=== PATIENT | female | born 2000 | race Caucasian/White ===

== ENCOUNTER 2019-11-15 12:47 | Observation (INO) | payer BC, OTHER ==
[2019-11-15] MEDS ORDERED: ONDANSETRON 4 MG/2 ML VIAL IVP STA (13:17)
[2019-11-15] MEDS ORDERED: SODIUM CHLORIDE 0.9% 1,000 ML IV STA (13:17)
[2019-11-15] MEDS ORDERED: MORPHINE SULFATE 4 MG/ML SYRINGE IV STA (13:17)
--- NOTE | 2019-11-15 13:33 | ED ---
Abdominal Pain HPI - General Chief Complaint: Abdominal Pain Stated Complaint: Stomach pain Time Seen by Provider: 11/15/19 13:04 Source: patient Mode of arrival: ambulatory Limitations: no limitations - History of Present Illness Initial Comments: Patient is a 19-year-old female presenting to the emergency Department with complaints of lower abdominal pain that started suddenly this morning. Patient states the pain woke her up from sleep approximately 9 AM. Patient states the pain is located suprapubic and is sharp in nature. She rates the pain 9/10. Patient denies being at this time states she is on control. She does not normally have a period. Patient states she does have a history of kidney stones. Patient states she has been having frequent urination throughout the day as well as mild hematuria. Patient denies history of abdominal surgeries. She has been having regular bowel movements. Patient states she does have an appointment with a GI specialist as she's been having "stomach issues." She denies fever, chills, chest pain, shortness of breath. She has no other complaints at this time. Upon arrival to the ER, vital signs are stable. - Related Data Allergies Allergy/AdvReac Type Severity Reaction Status Date / Time amoxicillin [From Augmentin] Allergy Unknown Verified 11/15/19 12:54 clavulanic acid Allergy Unknown Verified 11/15/19 12:54 [From Augmentin] ketorolac [From Toradol] Allergy Rash/Hives Verified 11/15/19 12:54 Review of Systems ROS Statement: Those systems with pertinent positive or pertinent negative responses have been documented in the HPI. ROS Other: All systems not noted in ROS Statement are negative. Past Medical History Past Medical History: No Reported History History of Any Multi-Drug Resistant Organisms: None Reported Additional Past Surgical History / Comment(s): breast reduction 2017 Past Psychological History: Anxiety, Depression Smoking Status: Never smoker Past Alcohol Use History: None Reported Past Drug Use History: None Reported General Exam - General Exam Comments Initial Comments: GENERAL: Well-appearing, well-nourished and in no acute distress. HEAD: Atraumatic, normocephalic. EYES: Pupils equal round and reactive to light, extraocular movements intact, sclera anicteric, conjunctiva are normal. ENT: TMs normal, nares patent, oropharynx clear without exudates. Moist mucous membranes. NECK: Normal range of motion, supple without lymphadenopathy or JVD. LUNGS: Breath sounds clear to auscultation bilaterally and equal. No wheezes rales or rhonchi. HEART: Regular rate and rhythm without murmurs, rubs or gallops. ABDOMEN: Tender to palpation suprapubic and right lower quadrant. Soft, normoactive bowel sounds. No guarding, no rebound. No masses appreciated. : Deferred EXTREMITIES: Normal range of motion, no pitting or edema. No clubbing or cyanosis. NEUROLOGICAL: Cranial nerves II through XII grossly intact. Normal speech, normal gait. PSYCH: Normal mood, normal affect. SKIN: Warm, Dry, normal turgor, no rashes or lesions noted. Limitations: no limitations Course Vital Signs 11/15/19 12:49 Temperature 98.7 F Pulse Rate 78 Respiratory 16 Rate Blood Pressure 106/72 O2 Sat by Pulse 96 Oximetry Medical Decision Making - Medical Decision Making Patient is a 19-year-old female presenting with right lower quadrant suprapubic tenderness that woke her up this morning. No history of prior abdominal surgeries. Does have a history of kidney stones. Patient is tender right lower quadrant as well as suprapubic area. Lab work shows slight leukocytosis of 11.0, no other acute findings. Urine does show significant amount of blood and RBCs. Not . Patient's pain seemed abnormal for kidney stone so CT of the abdomen was ordered with IV contrast. This shows possible small bowel obstruction or stricture. There also appears to be a small ureter stone on the right side. We did consult with Dr. Torres who recommended admission as well as [address] with oral contrast. Patient will be nothing by mouth. We will continue with IV fluids, pain control. Patient is agreement with this plan and care. Case discussed with Dr. King. - Lab Data Result diagrams: 11/15/19 13:45 11/15/19 13:45 Lab Results 11/15/19 11/15/19 11/15/19 Range/Units 12:57 12:57 13:45 WBC 11.0 H (3.8-10.6) k/uL RBC 4.62 (3.80-5.40) m/uL Hgb 13.7 (11.4-16.0) gm/dL Hct 42.7 (34.0-46.0) % MCV 92.4 (80.0-100.0) fL MCH 29.7 (25.0-35.0) pg MCHC 32.2 (31.0-37.0) g/dL RDW 12.4 (11.5-15.5) % Plt Count 381 (150-450) k/uL Neutrophils % 86 % Lymphocytes % 10 % Monocytes % 2 % Eosinophils % 1 % Basophils % 0 % Neutrophils # 9.4 H (1.3-7.7) k/uL Lymphocytes # 1.1 (1.0-4.8) k/uL Monocytes # 0.2 (0-1.0) k/uL Eosinophils # 0.1 (0-0.7) k/uL Basophils # 0.1 (0-0.2) k/uL Sodium (137-145) mmol/L Potassium (3.5-5.1) mmol/L Chloride (98-107) mmol/L Carbon Dioxide (22-30) mmol/L Anion Gap mmol/L BUN (7-17) mg/dL Creatinine (0.52-1.04) mg/dL Est GFR (CKD-EPI)AfAm (>60 ml/min/1.73 sqM) Est GFR (CKD-EPI)NonAf (>60 ml/min/1.73 sqM) Glucose (74-99) mg/dL Plasma Lactic Acid Olaf (0.7-2.0) mmol/L Calcium (8.4-10.2) mg/dL Total Bilirubin (0.2-1.3) mg/dL AST (14-36) U/L ALT (4-34) U/L Alkaline Phosphatase (38-126) U/L Total Protein (6.3-8.2) g/dL Albumin (3.5-5.0) g/dL Lipase (23-300) U/L Urine Color Red Urine Appearance Cloudy H (Clear) Urine pH 7.5 (5.0-8.0) Ur Specific Mcdermitt 1.022 (1.001-1.035) Urine Protein 1+ H (Negative) Urine Glucose (UA) Negative (Negative) Urine Ketones Trace H (Negative) Urine Blood Large H (Negative) Urine Nitrite Negative (Negative) Urine Bilirubin Negative (Negative) Urine Urobilinogen <2.0 (<2.0) mg/dL Ur Leukocyte Esterase Small H (Negative) Urine RBC >182 H (0-5) /hpf Urine WBC 11 H (0-5) /hpf Ur Squamous Epith Cells 11 H (0-4) /hpf Urine Bacteria Occasional H (None) /hpf Urine Mucus Few H (None) /hpf Urine HCG, Qual Not Detected (Not Detectd) 11/15/19 11/15/19 Range/Units 13:45 13:45 WBC (3.8-10.6) k/uL RBC (3.80-5.40) m/uL Hgb (11.4-16.0) gm/dL Hct (34.0-46.0) % MCV (80.0-100.0) fL MCH (25.0-35.0) pg MCHC (31.0-37.0) g/dL RDW (11.5-15.5) % Plt Count (150-450) k/uL Neutrophils % % Lymphocytes % % Monocytes % % Eosinophils % % Basophils % % Neutrophils # (1.3-7.7) k/uL Lymphocytes # (1.0-4.8) k/uL Monocytes # (0-1.0) k/uL Eosinophils # (0-0.7) k/uL Basophils # (0-0.2) k/uL Sodium 136 L (137-145) mmol/L Potassium 4.8 (3.5-5.1) mmol/L Chloride 103 (98-107) mmol/L Carbon Dioxide 20 L (22-30) mmol/L Anion Gap 13 mmol/L BUN 10 (7-17) mg/dL Creatinine 0.57 (0.52-1.04) mg/dL Est GFR (CKD-EPI)AfAm >90 (>60 ml/min/1.73 sqM) Est GFR (CKD-EPI)NonAf >90 (>60 ml/min/1.73 sqM) Glucose 96 (74-99) mg/dL Plasma Lactic Acid Olaf 1.9 (0.7-2.0) mmol/L Calcium 10.0 (8.4-10.2) mg/dL Total Bilirubin 0.2 (0.2-1.3) mg/dL AST 19 (14-36) U/L ALT 16 (4-34) U/L Alkaline Phosphatase 116 (38-126) U/L Total Protein 7.9 (6.3-8.2) g/dL Albumin 4.5 (3.5-5.0) g/dL Lipase 27 (23-300) U/L Urine Color Urine Appearance (Clear) Urine pH (5.0-8.0) Ur Specific Mcdermitt (1.001-1.035) Urine Protein (Negative) Urine Glucose (UA) (Negative) Urine Ketones (Negative) Urine Blood (Negative) Urine Nitrite (Negative) Urine Bilirubin (Negative) Urine Urobilinogen (<2.0) mg/dL Ur Leukocyte Esterase (Negative) Urine RBC (0-5) /hpf Urine WBC (0-5) /hpf Ur Squamous Epith Cells (0-4) /hpf Urine Bacteria (None) /hpf Urine Mucus (None) /hpf Urine HCG, Qual (Not Detectd) Disposition Clinical Impression: Lower abdominal pain, Hematuria, Right ureteral stone, Small bowel obstruction Disposition: ADMITTED IP TO THIS [facility] Condition: Stable Is patient prescribed a controlled substance at d/c from ED?: No Referrals: Georgie Mireles DO [Primary Care Provider] - 1-2 days Decision Date: 11/15/19 Decision Time: 16:00
[2019-11-15 13:36] LABS: Appearance,Urine Cloudy (Clear); Bacteria,Urine Occasional /hpf; Bilirubin,Urine Negative (Negative); Blood,Urine Large (Negative); Color,Urine Red; Glucose,Urine (UA) Negative (Negative); Ketones,Urine Trace (Negative); Leukocyte Esterase,Urine Small (Negative); Mucus,Urine Few /hpf; Nitrite,Urine Negative (Negative); PH, Urine 7.5 (5.0-8.0); Protein,Urine 1+ (Negative); RBC,Urine >182 /hpf (0-5); Specific Gravity,Urine 1.022 (1.001-1.035); Squamous Epithelial Cell,Urine 11 /hpf (0-4); Urobilinogen,Urine <2.0 mg/dL (<2.0); WBC,Urine 11 /hpf (0-5)
[2019-11-15 14:17] LABS: Basophils # (A) 0.1 k/uL (0-0.2); Basophils % (A) 0 %; Eosinophils # (A) 0.1 k/uL (0-0.7); Eosinophils % (A) 1 %; HCT 42.7 % (34.0-46.0); HGB 13.7 gm/dL (11.4-16.0); Lymphocytes # (A) 1.1 k/uL (1.0-4.8); Lymphocytes % (A) 10 %; MCH 29.7 pg (25.0-35.0); MCHC 32.2 g/dL (31.0-37.0); MCV 92.4 fL (80.0-100.0); Mean Platelet Volume 6.8; Monocytes # (A) 0.2 k/uL (0-1.0); Monocytes % (A) 2 %; Neutrophils # (A) 9.4 k/uL (1.3-7.7); Neutrophils % (A) 86 %; Platelet Count 381 k/uL (150-450); RBC 4.62 m/uL (3.80-5.40); RDW 12.4 % (11.5-15.5)
[2019-11-15 14:32] LABS: ALT 16 U/L (4-34); AST 19 U/L (14-36); African American GFR (CKD) >90 (>60 ml/min/1.73 sqM); Albumin 4.5 g/dL (3.5-5.0); Alkaline Phosphatase 116 U/L (38-126); Anion Gap 13 mmol/L; Blood Urea Nitrogen 10 mg/dL (7-17); Carbon Dioxide 20 mmol/L (22-30); Chloride 103 mmol/L (98-107); Glucose 96 mg/dL (74-99); Non-African American GFR(CKD) >90 (>60 ml/min/1.73 sqM); Potassium 4.8 mmol/L (3.5-5.1); Sodium 136 mmol/L (137-145); Total Bilirubin 0.2 mg/dL (0.2-1.3); Total Protein 7.9 g/dL (6.3-8.2)
--- NOTE | 2019-11-15 15:44 | CT ---
EXAMINATION TYPE: CT abdomen pelvis w con DATE OF EXAM: 11/15/2019 COMPARISON: HISTORY: RLQ pain CT DLP: 1123.2 mGycm Automated exposure control for dose reduction was used. TECHNIQUE: Helical acquisition of images from the lung bases through the pelvis have been completed. CONTRAST: Performed without Oral Contrast and with IV Contrast, patient injected with 100 mL of Isovue 300. FINDINGS: At the right cardiophrenic angle there is a low dense focus present measuring approximate 5 .1 x 3.1 x 3.5 cm likely representing pericardial cyst. There is no pleural pericardial effusion. Thi s small hiatal hernia. LUNG BASES: No significant abnormality is appreciated. AORTA: No significant abnormality is appreciated. LIVER/GB: Liver is enlarged. Gallbladder unremarkable. PANCREAS: No significant abnormality is seen. SPLEEN: Low dense focus measuring 13 mm towards the hilum likely representing cyst. ADRENALS: No significant abnormality is seen. KIDNEYS: No significant abnormality is seen. REPRODUCTIVE ORGANS: No significant abnormality is seen BOWEL: Small bowel feces sign suggestive of the terminal ileum. Terminal ileum is somewhat dilated, transition point suspected on coronal image #38, axial image #47. The appendix is normal. Fecal mater ial present within a distended cecum. Diverticular change present along the colon, there is colonic w all thickening also present. FREE AIR: No Free Air visible. ASCITES: None visible. PELVIC ADENOPATHY: None visualized. RETROPERITONEAL ADENOPATHY: No Retroperitoneal Adenopathy visible. URINARY BLADDER: No significant abnormality is seen. OSSEOUS STRUCTURES: No significant abnormality is seen. IMPRESSION: SMALL BOWEL FECES SIGN WITH SUGGESTION OF TRANSITION POINT, CALIBER CHANGE DESCRIBED, CORRELATE FO R POSSIBLE OBSTRUCTION OR STRICTURE, THERE MAY BE UNDERLYING COLITIS, THERE IS DIVERTICULOSIS, SMALL BOWEL FOLLOW-THROUGH ARE FOLLOW-UP CT WITH ORAL CONTRAST WITH APPROPRIATE PREP TO ALLOW FOR CONTRAST MATERIAL THROUGH THE SMALL BOWEL INTO THE COLON TO BE OF BENEFIT. CONSIDER SURGICAL CONSULT.
[2019-11-15] MEDS ORDERED: ACETAMINOPHEN TAB 325 MG TAB PO PRN (16:01)
[2019-11-15] MEDS ORDERED: NALOXONE 0.4 MG/ML 1 ML VIAL IV PRN (16:01)
[2019-11-15] MEDS ORDERED: traMADol 50 MG TAB PO PRN (16:01)
[2019-11-15] MEDS ORDERED: IOPAMIDOL CONTRAST (ORAL USE) VIAL PO PRN (16:02)
[2019-11-15] MEDS ORDERED: MORPHINE SULFATE 4 MG/ML SYRINGE IVP STA (16:16)
[2019-11-15] MEDS: SODIUM CHLORIDE 0.9% 1,000 ML IV SCH (16:36)
--- NOTE | 2019-11-15 18:56 | CT ---
EXAMINATION TYPE: CT abdomen pelvis wo con DATE OF EXAM: 11/15/2019 COMPARISON: 11/15/2019, earlier today HISTORY: 19-year-old female right lower quadrant pain, possible small bowel obstruction CT DLP: 728.9 mGycm. Automated exposure control for dose reduction was used. TECHNIQUE: Contiguous axial scanning of the abdomen and pelvis without IV contrast. Oral contrast was administered. Coronal and sagittal reconstructions performed. FINDINGS: Heart normal size without pericardial effusion. Redemonstrated is partially visualized 4.9 x 3.2 cm r ight-sided pericardiac cyst. Lung bases clear without pleural effusion. Liver mildly enlarged at 19.5 cm. Otherwise, noncontrast appearance of the liver, gallbladder, adrena l glands, left kidney, spleen, and pancreas show no gross abnormality. There is a tiny 3 mm calculus in the upper third right ureter but no significant hydronephrosis appar ent. In retrospect, this was present on the exam earlier today. Interval passage of the mottled debris within the distal ileum. Oral contrast has progressed into the cecum. Normal appendix. Moderate stool within the right side of the colon. No dilated small bowel, f ree fluid, free air. A couple prominent mid mesenteric lymph nodes measuring up to 6 mm. IV contrast collecting within the bladder. Uterus is anteverted. Both ovaries are visualized. No abno rmal fluid collection in the pelvis or pelvic lymphadenopathy. Bones: Left L5 hemisacralization with a mildly degenerative some limitation joint. IMPRESSION: 1. Improvement in appearance of the small bowel and ileum is compared to the exam of earlier today. Oral contrast has also passed into the right side of the colon. No evidence for small bowel obstructi on. 2. However, we now identify a tiny 3 mm calculus in the upper third right ureter. This does not cont ribute to any significant obstructive uropathy.
[2019-11-15] MEDS: MORPHINE SULFATE 4 MG/ML SYRINGE IV PRN (20:33)
[2019-11-16] MEDS: MORPHINE SULFATE 4 MG/ML SYRINGE IV PRN ×3 (00:26→13:27)
[2019-11-16] MEDS: ONDANSETRON 4 MG/2 ML VIAL IVP PRN (07:20)
[2019-11-16] MEDS: SODIUM CHLORIDE 0.9% 1,000 ML IV SCH (08:17)
--- NOTE | 2019-11-16 11:07 | P.GSHP ---
<Ghislaine Oliveira - Last Filed: 11/16/19 11:07> History of Present Illness H&P Date: 11/16/19 Chief Complaint: abdominal pain CHIEF COMPLAINT: Abdominal pain HISTORY OF PRESENT ILLNESS: 19-year-old female who presented to the emergency room with a chief complaint of abdominal pain. Patient examined this morning at the bedside. She reports lower abdominal pain but states it is tolerable at this time. She reports she has been having abdominal pain for the past 2-3 months. She recently was evaluated outpatient by a utility supervisor [employer] and [employer] but she is unsure of who she saw. She states they told her she likely has IBS. Patient reports mild nausea but denies vomiting. Denies fever or chills. Denies change in bowel habits. PAST MEDICAL HISTORY: See list. PAST SURGICAL HISTORY: See list. SOCIAL HISTORY: No illicit drug use. REVIEW OF SYSTEMS: CONSTITUTIONAL: Denies fever or chills. HEENT: Denies blurred vision, vision changes, or eye pain. Denies hemoptysis CARDIOVASCULAR: Denies chest pain or pressure. RESPIRATORY: No shortness of breath. GASTROINTESTINAL: Refer to HPI for pertinent findings HEMATOLOGIC: Denies bleeding disorders. GENITOURINARY: Denies any blood in urine. SKIN: Denies pruitis. Denies rash. PHYSICAL EXAM: VITAL SIGNS: Reviewed. GENERAL: Well-developed in no acute distress. HEENT: No sclera icterus. Extraocular movements grossly intact. Moist buccal mucosa. Head is atraumatic, normocephalic. ABDOMEN: Soft. Nondistended. Minimal tenderness on palpation of lower abdomen. NEUROLOGIC: Alert and oriented. Cranial nerves II through XII grossly intact. LABORATORY DATA: WBC 11.0. Hemoglobin 13.7. Platelet count 381. IMAGING: CT abdomen and pelvis: Improvement in appearance of the small bowel and ileum compared to exam of earlier today. Oral contrast this passed into the right side of the colon. No evidence for small bowel obstruction Tiny 3 mm calculus in the upper third right ureter. This does not contribute to any significant obstructive uropathy. ASSESSMENT: 1. Abdominal pain 2. Small bowel obstruction, ruled out PLAN: Continue NPO status until patient is evaluated by Dr. Torres this afternoon. Anticipate initiation of diet that time Patient encouraged to follow-up with her utility supervisor [employer] post discharge. Further recommendations pending evaluation by Dr. Torres today. Nurse practitioner note has been reviewed by physician. Signing provider agrees with the documented findings, assessment, and plan of care. Past Medical History Past Medical History: No Reported History History of Any Multi-Drug Resistant Organisms: None Reported Additional Past Surgical History / Comment(s): breast reduction 2017 Past Psychological History: Anxiety, Depression Smoking Status: Never smoker Past Alcohol Use History: None Reported Past Drug Use History: None Reported - Past Family History Mother Family Medical History: CVA/TIA Additional Family Medical History / Comment(s): CVA at 27, depression, borderline personality disorder Medications and Allergies Home Medications Medication Instructions Recorded Confirmed Type Atomoxetine HCl 80 mg PO QAM 11/15/19 11/15/19 History Dextroamphetamine/Amphetamine 15 mg PO QAM 11/15/19 11/15/19 History [Adderall Xr] Norethindrone-E.estradiol-Iron 1 tab PO DAILY 11/15/19 11/15/19 History [Junel Fe 1.5 mg-30 Mcg Tablet] OLANZapine [ZyPREXA] 5 mg PO HS 11/15/19 11/15/19 History Venlafaxine HCl ER [Effexor Xr] 150 mg PO DAILY 11/15/19 11/15/19 History Allergies Allergy/AdvReac Type Severity Reaction Status Date / Time clavulanic acid Allergy Mild Unknown Verified 11/15/19 20:58 [From Augmentin] amoxicillin [From Augmentin] Allergy Unknown Verified 11/15/19 20:58 ketorolac [From Toradol] Allergy Rash/Hives Verified 11/15/19 20:58 walnut Allergy Unknown Verified 11/15/19 20:58 Surgical - Exam Vital Signs Temp Pulse Resp BP Pulse Ox 98.7 F 78 16 106/72 96 11/15/19 12:49 11/15/19 12:49 11/15/19 12:49 11/15/19 12:49 11/15/19 12:49 Results - Labs 11/15/19 13:45 11/15/19 13:45 Abnormal Lab Results - Last 24 Hours (Table) 11/15/19 11/15/19 11/15/19 Range/Units 12:57 13:45 13:45 WBC 11.0 H (3.8-10.6) k/uL Neutrophils # 9.4 H (1.3-7.7) k/uL Sodium 136 L (137-145) mmol/L Carbon Dioxide 20 L (22-30) mmol/L Urine Appearance Cloudy H (Clear) Urine Protein 1+ H (Negative) Urine Ketones Trace H (Negative) Urine Blood Large H (Negative) Ur Leukocyte Esterase Small H (Negative) Urine RBC >182 H (0-5) /hpf Urine WBC 11 H (0-5) /hpf Ur Squamous Epith Cells 11 H (0-4) /hpf Urine Bacteria Occasional H (None) /hpf Urine Mucus Few H (None) /hpf Microbiology - Last 24 Hours (Table) 11/15/19 12:57 Urine Culture - Preliminary Urine,Voided Diabetes panel 11/15/19 Range/Units 13:45 Sodium 136 L (137-145) mmol/L Potassium 4.8 (3.5-5.1) mmol/L Chloride 103 (98-107) mmol/L Carbon Dioxide 20 L (22-30) mmol/L BUN 10 (7-17) mg/dL Creatinine 0.57 (0.52-1.04) mg/dL Glucose 96 (74-99) mg/dL Calcium 10.0 (8.4-10.2) mg/dL AST 19 (14-36) U/L ALT 16 (4-34) U/L Alkaline Phosphatase 116 (38-126) U/L Total Protein 7.9 (6.3-8.2) g/dL Albumin 4.5 (3.5-5.0) g/dL Calcium panel 11/15/19 Range/Units 13:45 Calcium 10.0 (8.4-10.2) mg/dL Albumin 4.5 (3.5-5.0) g/dL Pituitary panel 11/15/19 Range/Units 13:45 Sodium 136 L (137-145) mmol/L Potassium 4.8 (3.5-5.1) mmol/L Chloride 103 (98-107) mmol/L Carbon Dioxide 20 L (22-30) mmol/L BUN 10 (7-17) mg/dL Creatinine 0.57 (0.52-1.04) mg/dL Glucose 96 (74-99) mg/dL Calcium 10.0 (8.4-10.2) mg/dL Adrenal panel 11/15/19 Range/Units 13:45 Sodium 136 L (137-145) mmol/L Potassium 4.8 (3.5-5.1) mmol/L Chloride 103 (98-107) mmol/L Carbon Dioxide 20 L (22-30) mmol/L BUN 10 (7-17) mg/dL Creatinine 0.57 (0.52-1.04) mg/dL Glucose 96 (74-99) mg/dL Calcium 10.0 (8.4-10.2) mg/dL Total Bilirubin 0.2 (0.2-1.3) mg/dL AST 19 (14-36) U/L ALT 16 (4-34) U/L Alkaline Phosphatase 116 (38-126) U/L Total Protein 7.9 (6.3-8.2) g/dL Albumin 4.5 (3.5-5.0) g/dL <Davy Torres - Last Filed: 11/16/19 16:40> Surgical - Exam Vital Signs Temp Pulse Resp BP Pulse Ox 98.7 F 78 16 106/72 96 11/15/19 12:49 11/15/19 12:49 11/15/19 12:49 11/15/19 12:49 11/15/19 12:49 Results - Labs 11/15/19 13:45 11/15/19 13:45 Microbiology - Last 24 Hours (Table) 11/15/19 12:57 Urine Culture - Preliminary Urine,Voided Assessment and Plan Assessment: Patient feels better this afternoon. Her abdomen soft. She is tolerating clears. Patient will be observed overnight. She'll have her diet advanced the morning.
[2019-11-16] MEDS ORDERED: PANTOPRAZOLE 40 MG/10 ML VIAL IVP SCH (21:00)
[2019-11-16] MEDS ORDERED: NORETHINDRONE E ESTRADIOL IRON PO SCH (21:45)
[2019-11-16] MEDS ORDERED: ATOMOXETINE HCL 80 MG PO SCH (21:45)
[2019-11-16] MEDS ORDERED: DEXTROAMPHETAMINE PO SCH (21:45)
[2019-11-16] MEDS ORDERED: AMPHETAMINE PO SCH (21:45)
[2019-11-16] MEDS ORDERED: OLANZapine 5 MG TAB PO SCH (22:00)
[2019-11-16] MEDS: VENLAFAXINE HCL ER 150 MG CAP PO SCH (22:51)
[2019-11-17] MEDS: ONDANSETRON 4 MG/2 ML VIAL IVP PRN (00:48)
[2019-11-17] MEDS: MORPHINE SULFATE 4 MG/ML SYRINGE IV PRN (01:19)
[2019-11-17] MEDS: VENLAFAXINE HCL ER 150 MG CAP PO SCH (11:06)
[2019-11-17] MEDS: SODIUM CHLORIDE 0.9% 1,000 ML IV SCH ×2 (11:10→11:45)
[2019-11-17] MEDS ORDERED: JUNEL FE PO SCH (12:00)
[2019-11-17] MEDS ORDERED: STRATTERA 80 MG PO SCH (12:00)
[2019-11-17] MEDS ORDERED: ADDERALL 15 MG PO SCH (12:00)
--- NOTE | 2019-11-17 12:42 | P.DS ---
Providers Date of admission: 11/15/19 15:57 Expected date of discharge: 11/17/19 Attending physician: Davy Torres Primary care physician: Georgie Mireles DO Hospital Course: 19-year-old female who presented to the emergency room with a chief complaint of abdominal pain. She reports she has been having abdominal pain for the past 2-3 months. She recently was evaluated outpatient by a litigation examiner but she is unsure of who she saw. She states they told her she likely has IBS. WBC 11.0. Hemoglobin 13.7. Platelet count 381. CT abdomen and pelvis: Improvement in appearance of the small bowel and ileum compared to exam of earlier today. Oral contrast this passed into the right side of the colon. No evidence for small bowel obstruction Tiny 3 mm calculus in the upper third right ureter. This does not contribute to any significant obstructive uropathy. Patient was started on a clear liquid diet and advance as tolerated. She states her pain has significantly improved and feels she is ready to be discharged home. Dr. Torres is agreeable to discharge today. She is to follow up outpatient. Please see EMR for further hospital course details. Discharge Diagnosis: 1. Abdominal pain 2. Small bowel obstruction, ruled out Nurse practitioner note has been reviewed by physician. Signing provider agrees with the documented findings, assessment, and plan of care. Patient Condition at Discharge: Stable Plan - Discharge Summary New Discharge Prescriptions: No Action Venlafaxine HCl ER [Effexor Xr] 150 mg PO DAILY Dextroamphetamine/Amphetamine [Adderall Xr] 15 mg PO QAM Atomoxetine HCl 80 mg PO QAM Norethindrone-E.estradiol-Iron [Junel Fe 1.5 mg-30 Mcg Tablet] 1 tab PO DAILY OLANZapine [ZyPREXA] 5 mg PO HS Discharge Medication List Atomoxetine HCl 80 mg PO QAM 11/15/19 [History] Dextroamphetamine/Amphetamine [Adderall Xr] 15 mg PO QAM 11/15/19 [History] Norethindrone-E.estradiol-Iron [Junel Fe 1.5 mg-30 Mcg Tablet] 1 tab PO DAILY 11/15/19 [History] OLANZapine [ZyPREXA] 5 mg PO HS 11/15/19 [History] Venlafaxine HCl ER [Effexor Xr] 150 mg PO DAILY 11/15/19 [History] Follow up Appointment(s)/Referral(s): Georgie Mireles DO [Primary Care Provider] - 1-2 days Davy Torres MD [STAFF PHYSICIAN] - 1 Week
[2019-11-17 13:21] VITALS: BP 127/84; PULSE 97; RESP 20; TEMP 98
== END 2019-11-17 16:25 | disposition home or self-care (01) ==
LOC: EC 12:47 → 6PED 15:57
PROVIDERS: ADMIT Surgery; ATTEND Surgery
DX: N20.1 Calculus of ureter (principal); R10.30 Lower abdominal pain, unspecified; Z87.442 Personal history of urinary calculi; F41.9 Anxiety disorder, unspecified; F32.9 Major depressive disorder, single episode, unspecified; Z82.3 Family history of stroke; Z81.8 Family history of other mental and behavioral disorders; Z79.3 Long term (current) use of hormonal contraceptives; Z79.890 Hormone replacement therapy; Z79.899 Other long term (current) drug therapy; Z88.0 Allergy status to penicillin; Z88.5 Allergy status to narcotic agent; Z91.018 Allergy to other foods
CPT/HCPCS: 96361 ×3; 96376 ×4; 96374; 96375; 99285; 36415; 80053; 83605; 83690; 85025; 81001; 81025; 87086; 87635; 74176; 74177; G0378 ×3; J2270 ×3; J2405 ×3; Q9967

== ENCOUNTER → 2019-11-29 | Outpatient (CLI) | payer BC, OTHER ==
--- NOTE | 2019-11-30 07:04 | NM ---
Nuclear medicine hepatobiliary scan. HISTORY: Pain. DOSAGE: The patient received 8 ounces of ensure plus and 4 mCi of Technetium 99m Choletec. FINDINGS: There is normal hepatic extraction. The gallbladder is seen by 30 minutes. There is bilia ry to bowel clearance by 45 minutes. Ejection fraction is 90%. IMPRESSION: 1. No evidence of cholecystitis. 2. Gallbladder ejection fraction 90% can occasionally be seen with hyperdynamic gallbladder correlate clinically.
== END | disposition home or self-care (01) ==
LOC: RADNMMAIN 15:16
PROVIDERS: ATTEND Surgery
DX: K82.8 Other specified diseases of gallbladder (principal); Z88.0 Allergy status to penicillin; Z88.6 Allergy status to analgesic agent
CPT/HCPCS: 78227; A9537; J2805

== ENCOUNTER → 2020-01-25 | Day surgery (SDC) | payer OTHER ==
[2020-01-18 15:30] VITALS: BMI 34.3
[~2020-01-25] MED LIST: LACTATED RINGERS 1,000 ML IV SCH; LIDOCAINE 1% (10MG/ML) FOR IV START INTRADERMA ONE; LIDOCAINE 1% INJ 10MG/ML (20 ML MDV) ONE; PROPOFOL 10 MG/ML 20 ML VIAL IV ONE
[2020-01-25 09:20] VITALS: RESP 16; TEMP 97
--- NOTE | 2020-01-25 10:00 | P.PCN ---
Date of Procedure: 01/25/20 Procedure(s) Performed: BRIEF HISTORY: Patient is a 19-year-old pleasant white female scheduled for an elective colonoscopy as a part of evaluation of chronic diarrhea for the last 2 years duration. She has periumbilica abdominal pain. She was given the emergency room twice in the last 3 months.. She had a CAT scan of of abdomen that showed thickening of the terminal ileum. She is scheduled for colonoscopy to evaluate further. PROCEDURE PERFORMED: Colonoscopy with biopsy, snare polypectomy and Endo Clip. PREOPERATIVE DIAGNOSIS: Chronic diarrhea of 2 years duration/periumbilical abdominal pain IV sedation per Anesthesia. PROCEDURE: After informed consent was obtained, the patient, was brought into the endoscopy unit. IV sedation was administered by Anesthesia under continuous monitoring. Digital rectal examination was normal. Initially the Olympus CF-160 flexible video colonoscope was then inserted in the rectum, gradually advanced into the cecum without any difficulty. Careful examination was performed as the scope was gradually being withdrawn. Ileocecal valve and the appendiceal orifice were visualized and appeared normal. Prep was excellent. Terminal ileum was intubated which appeared normal. Mucosa of the cecum, appeared normal. In the ascending colon there were 2 polyps measuring 5 mm and 1.5 cm in size both of which were broad-based removed by snare polypectomy. Endo Clip was placed at the site of polypectomy from ascending colon to prevent post-polypectomy bleed. Rest of the ascending colon, transverse colon, descending colon, sigmoid colon, and rectum appeared normal. Random biopsies were done from the transverse colon and descending colon to rule out microscopic/collagenous colitis. Retroflexion was performed in the rectum and no lesions were seen. The patient tolerated the procedure well. IMPRESSION: 5 mm and 1.5 cm broad-based ascending colon polyp status post polypectomy/Endo Clip placement No evidence of colitis or ileitis RECOMMENDATIONS: Findings of this examination were discussed with the patient as well as her family. She was advised to follow with the biopsy results. She'll be seen in office in 2 weeks..
[2020-01-25 10:21] VITALS: BP 94/60; PULSE 61
== END | disposition home or self-care (01) ==
LOC: ORWHC2ENDO 08:30
PROVIDERS: ATTEND Internal Medicine Gastroenterology
DX: D12.2 Benign neoplasm of ascending colon (principal); K52.9 Noninfective gastroenteritis and colitis, unspecified; K21.9 Gastro-esophageal reflux disease without esophagitis; Z79.899 Other long term (current) drug therapy; Z88.6 Allergy status to analgesic agent; Z88.0 Allergy status to penicillin
CPT/HCPCS: 45385; 81025; 88305; J2001; J2704; 45382